=== PATIENT | male | born 1955 | race Caucasian/White ===

== ENCOUNTER 2017-07-25 09:23 | Emergency (ER) | payer MEDICAID, OTHER | END 2017-07-25 12:30 | disposition home or self-care (01) | LOC: E/R 09:23 | DX: Z76.0 Encounter for issue of repeat prescription (principal); I10 Essential (primary) hypertension | CPT/HCPCS: 99281; Z7502 ==

== ENCOUNTER 2017-10-04 16:04 | Emergency (ER) | payer MEDICAID ==
[2017-10-04 16:37] LABS: ADD MAN DIFF? NO
[2017-10-04 16:39] LABS: WHITE BLOOD COUNT 5.9 10^3/ul (4.8-10.8)
[2017-10-04 16:39] LABS: BASOPHIL # 0.1 10^3/ul (0.0-0.1); BASOPHILS % 1.2 % (0.0-2.0); EOSINOPHILS # 0.1 10^3/ul (0.0-0.5); EOSINOPHILS % 1.5 % (0.0-7.0); HEMATOCRIT 38.8 % (42.0-52.0); HEMOGLOBIN 13.4 g/dl (14.0-18.0); LYMPHOCYTES # 2.1 10^3/ul (0.8-2.9); LYMPHOCYTES % 34.9 % (15.0-51.0); MEAN CORPUSCULAR HGB CONC 34.5 g/dl (32.0-37.0); MEAN CORPUSCULAR VOLUME 89.8 fl (82.0-101.0); MONOCYTE # 0.4 10^3/ul (0.3-0.9); MONOCYTES % 6.9 % (0.0-11.0); NEUTROPHIL # 3.3 10^3/ul (1.6-7.5); NEUTROPHILS % 55.3 % (39.0-77.0); PLATELET COUNT 360 10^3/UL (140-415); RED BLOOD COUNT 4.32 10^6/ul (4.70-6.10); RED CELL DISTRIBUTION WIDTH 13.2 % (11.5-14.5)
[2017-10-04] MEDS: AMLODIPINE 10 MG TAB PO (17:01)
[2017-10-04 17:09] LABS: ANION GAP 15 (8-16); BLOOD UREA NITROGEN 41 mg/dl (7-20); CALCIUM 9.3 mg/dl (8.4-10.2); CARBON DIOXIDE 25 mmol/L (21-31); CHLORIDE 105 mmol/L (97-110); CREATININE 1.16 mg/dl (0.61-1.24); GLUCOSE 190 mg/dl (70-220); POTASSIUM 4.1 mmol/L (3.5-5.1); SODIUM 141 mmol/L (135-144)
[2017-10-04] MEDS: ALPRAZOLAM 0.25 MG TAB PO (17:17)
[2017-10-04 17:20] LABS: B-TYPE NATRIURETIC PEPTIDE 33 PG/ML (0-125)
[2017-10-04 17:23] LABS: TROPONIN-I < 0.012 ng/ml (0.00-0.12)
== END 2017-10-04 18:19 | disposition home or self-care (01) ==
LOC: E/R 18:19
DX: I10 Essential (primary) hypertension (principal); R40.2142 Coma scale, eyes open, spontaneous, at arrival to emergency department; R40.2362 Coma scale, best motor response, obeys commands, at arrival to emergency department
CPT/HCPCS: 36415; 71045; 80048; 83880; 84484; 85025; 93005; 99285-25

== ENCOUNTER 2017-12-12 09:23 | Emergency (ER) | payer MEDICAID ==
[2017-12-12] MEDS: IBUPROFEN 800 MG TAB PO (10:00)
[2017-12-12] MEDS: predniSONE 20 MG TAB PO (10:47)
== END 2017-12-12 11:00 | disposition home or self-care (01) ==
LOC: FTE 09:23
DX: B02.9 Zoster without complications (principal); I10 Essential (primary) hypertension; F17.210 Nicotine dependence, cigarettes, uncomplicated
CPT/HCPCS: 99284; J7512

== ENCOUNTER 2018-02-06 08:48 | Emergency (ER) | payer OTHER, MEDICAID | END 2018-02-06 10:00 | disposition home or self-care (01) | LOC: FTE 08:48 | DX: L30.9 Dermatitis, unspecified (principal); R40.2412 Glasgow coma scale score 13-15, at arrival to emergency department; I10 Essential (primary) hypertension; F17.210 Nicotine dependence, cigarettes, uncomplicated | CPT/HCPCS: 99283; Z7502 ==